=== PATIENT | female | born 1935 | race Caucasian/White ===

== ENCOUNTER → 2017-02-07 09:23 | Outpatient (CLI) | payer MEDICARE, BC ==
[2016-03-12 12:39] VITALS: BMI 32.1
[~2017-02-07 09:23] MED LIST: BAYER CHEWABLE81 MG PO; CALCIUM 500 +1 EAC3 PO; COREG 3.1253.125 MG PO; EVISTA60 MG PO; LEVOTHYROXINE125 MCG PO; PRAVACHOL40 MG PO; PROTONIX40 MG PO
== END | disposition home or self-care (01) ==
LOC: D.RT 09:23
DX: R05 Cough (principal)

== ENCOUNTER → 2017-06-06 09:39 | Outpatient (CLI) | payer MEDICARE, BC ==
[2016-03-12 12:39] VITALS: BMI 32.1
== END | disposition home or self-care (01) ==
LOC: D.ECHO 09:39 → D.RT 11:00
DX: J45.991 Cough variant asthma (principal)

== ENCOUNTER → 2017-11-20 15:51 | Outpatient (CLI) | payer MEDICARE, BC ==
[2016-03-12 12:39] VITALS: BMI 32.1
[2017-11-20 16:11] LABS: ANION GAP 15.1 mmol/L (8-16); CALCIUM 8.8 mg/dL (8.5-10.1); CARBON DIOXIDE 23.4 mmol/L (21.0-32.0); CREATININE - SERUM 1.2 mg/dL (0.6-1.3); MAGNESIUM - SERUM 1.7 mg/dL (1.8-2.4); PHOSPHOROUS 4.5 mg/dL (2.5-4.9); POTASSIUM - SERUM 4.5 mmol/L (3.5-5.1); PRE-ALBUMIN 23.5 mg/dL (18.0-35.7)
== END | disposition home or self-care (01) ==
LOC: D.LABREF 15:51
PROVIDERS: Nurse Practitioner
DX: I10 Essential (primary) hypertension (principal)

== ENCOUNTER → 2018-06-24 14:22 | Outpatient (CLI) | payer MEDICARE, BC ==
[2016-03-12 12:39] VITALS: BMI 32.1
[2018-06-24 17:06] LABS: IRON 52 ug/dl (35-150); UNSAT IRON BIND CAPACITY 356 ug/dl (150-375)
[2018-06-24 17:07] LABS: % SATURATION 12 % (15-55); TOTAL IRON BIND CAPACITY 408 ug/dl (260-445)
[2018-06-26 10:24] LABS: FOLATE (FOLIC ACID) - SERUM >20.0 ng/mL (>3.0)
== END | disposition home or self-care (01) ==
LOC: D.LABREF 14:22
PROVIDERS: Internal Medicine Gastroenterology
DX: K31.89 Other diseases of stomach and duodenum (principal); R10.13 Epigastric pain; R11.2 Nausea with vomiting, unspecified; D64.9 Anemia, unspecified; R63.4 Abnormal weight loss

== ENCOUNTER → 2018-07-16 10:40 | Outpatient (CLI) | payer MEDICARE, BC ==
[2016-03-12 12:39] VITALS: BMI 32.1
== END | disposition home or self-care (01) ==
LOC: D.CT 10:40
DX: R42 Dizziness and giddiness (principal); R55 Syncope and collapse

== ENCOUNTER 2018-08-20 14:32 | Inpatient (IN) | payer MEDICARE, BC ==
[~2018-08-20] VITALS: Ht 157.5 cm; Wt 67.7 kg
--- NOTE | ~2018-08-20 | CN ---
PATIENT NAME:BRYSON NUÑEZ MEDICAL RECORD: [id number] : 37 LOCATION:D. D.2123 ADMIT DATE: 08/21/18 ACCOUNT: [id number] CONSULTING PHYSICIAN: DALLIN KAMARA MD REFERRING PHYSICIAN: TERENCE CAMPO MD DATE OF CONSULTATION: 08/21/2018 CONSULT REQUESTING PHYSICIAN: Terence Campo MD REASON FOR CONSULTATION: Syncopal episode, chronic cough. HISTORY OF PRESENT ILLNESS: Ms. Nuñez is an 82-year-old female who is losing weight for the last 6 months, almost 25 pounds. She was seeing the tone cabinet assembler. When she was coming home, she nearly passed out and hit her head against the wall. She is also coughing and the cough is sometimes spasmodic in nature. She does have posterior nasal drip, but denies any gastroesophageal reflux symptoms. The cough is not productive of any significant sputum. She also hear herself wheezing. REVIEW OF SYSTEMS: As in history of present illness. PAST MEDICAL HISTORY: 1. Cough variant asthma. 2. Arthritis. 3. Hysterectomy. 4. Weight loss. PAST SURGICAL HISTORY: Hysterectomy in 1980. ALLERGIES: SHE IS ALLERGIC TO LISINOPRIL AND SHELLFISH. MEDICATIONS: On ThinkSmart is reviewed. PERSONAL AND SOCIAL HISTORY: The patient is a nonsmoker, nondrinker. FAMILY HISTORY: Noncontributory. PHYSICAL EXAMINATION: GENERAL: Now, the patient is lying comfortably, but she is not in acute distress. VITAL SIGNS: The blood pressure is 104/68, pulse is 82, respiration is 18, temperature 98.6, and SPO2 is 98% on room air. HEENT: Conjunctivae are pink. Sclerae are not icteric. NECK: Supple, no JVD. CHEST: There is prolonged expiration with wheezing. HEART: Rhythm regular, normal sound, no murmur. ABDOMEN: Soft, bowel sounds present. No hepatosplenomegaly. RECTAL: Deferred. EXTREMITIES: No cyanosis, no clubbing, no pedal edema. CENTRAL NERVOUS SYSTEM: The patient is awake and alert. There are no obvious cranial nerve abnormality. The gait was not tested. CARDIOVASCULAR: Cardiac echo, the right ventricular systolic pressure is 31. OTHER LABORATORY DATA: CBC: WBC 8, hemoglobin 12.4, hematocrit is 36.2, the platelet count is 252. Chemistry: Sodium is 136, potassium 4.2, BUN is 30, CONSULT REPORT [id number] BRYSON NUÑEZ creatinine 1.2. IMPRESSION: 1. Syncopal episode. The differential included but not limited to chronic cough, possible secondary pulmonary hypertension, rule out cardiac arrhythmia. 2. Cough-variant asthma. 3. Mild pulmonary hypertension. 4. Allergic rhinitis. 5. Unexplained weight loss. RECOMMENDATION: 1. Brovana/budesonide nebulizer b.i.d. 2. Methylprednisolone IV. 3. Singulair 10 mg a day. 4. Tussin cough syrup 5 cc b.i.d. 5. Zithromax 500 mg daily for 3 days. 6. Fluticasone nasal spray 2 squirts to each nostril daily. 7. GERD precaution given. Dr. Campo, thank you for involving me in the care of Ms. Nuñez. TRANSINT:[id number] Voice Confirmation ID: [id number] DOCUMENT ID: [id number] DALLIN KAMARA MD at 1711 CC: [id number] DICTATION DATE: 08/21/18 1556 CONSULTING SALES MANAGER: 08/21/181958 DIS IN 08/23/18 [place] [address] [place] [address]
--- NOTE | ~2018-08-20 | EC ---
PATIENT:BRYSON NUÑEZ DATE OF SERVICE: 08/20/18 SEX: F MEDICAL RECORD: [id number] DATE OF : 37 LOCATION:D.M2 D.212 AGE OF PATIENT: 82 ADMISSION DATE: 08/21/18 REFERRING PHYSICIAN: INTERPRETING PHYSICIAN: SUSHIL MARTE MD ECHOCARDIOGRAM REPORT ECHO CHARGES 4 ECHO COMPLETE Date: 08/21/18 CLINICAL DIAGNOSIS: SYNCOPE ECHOCARDIOGRAPHIC MEASUREMENTS (adult normal given) AC root (d.<3.7cm) 3.3 cm LV Septum d (<1.2 cm> 1.3 cm Valve Excursion 1.7 cm LV Septum (systole) 1.5 cm Left Atria (s.<4.0cm> 3.5 cm LVPW d(<1.2cm) 1.4 cm RV (d.<2.3cm) 3.5 cm LVPW (sytole) 1.7 cm LV diastole(<5.6CM) 4.3 cm MV E-F(>70mm/sec) cm LV systole 3.1 cm LVOT Diameter 1.7 cm MV exc.(>10mm) 1.0 cm Est.ejection fraction (50-75%) % DOPPLER: LVIT cm/sec A 88.0 cm/sec E 62.0 cm/sec LA cm/sec RVSP 31 mmHg LVOT 100 cm/sec AOP1/2T m/s Asc. Ao 135 cm/sec RVOT 90 cm/sec RA cm/sec PA 97 cm/sec AV Gradient Peak 7.32 mmHg AV Mean 3.75 mmHg AV Area 1.7 cm MV Gradient Peak 1.91 mmHg MV Mean 0.93 mmHg MV Area cm COMMENTS: Vacuum Conditioner Operator: 2 CAROLYN COREY Med Peds: 3 Dr. Urbina TAPE# PACS Pericardial Effusion N DATE OF SERVICE: Adequate 2-D echo, color flow imaging, spectral Doppler, and M-Mode. No LVH. LV internal dimension is normal. Wall motion is normal. EF is greater than or equal to 55%. Aortic valve is sclerotic. There is no evidence of stenosis on Doppler interrogation. Left atrium is normal. Mitral valve shows no prolapse. Trace MR. Right-sided chambers are grossly normal. Trace TR. TRANSINT:[id number] Voice Confirmation ID: [id number] DOCUMENT ID: [id number] ECHOCARDIOGRAM REPORT [id number] BRYSON NUÑEZ,SUSHIL Melgar MD at 1407 CC: [id number] DICTATION DATE: 08/21/18 1323 FIELD OBSERVER: 08/21/18 1530 DIS IN 08/23/18 [place] [id number] [place] [id number]
--- NOTE | ~2018-08-20 | MORECARE ---
CASE MANAGEMENT DISCHARGE SUMMARY PATIENT: BRYSON NUÑEZ UNIT: [id number] ADM DATE: 08/21/18 AGE: 82 : 36 SEX: F ROOM/BED: D.2123 AUTHOR: NY KELLY PHYSICIAN: REFERRING PHYSICIAN: TERENCE CAMPO MD DATE OF SERVICE: 08/25/18 Discharge Plan Patient Name: BRYSON NUÑEZ Facility: [facility] : 1935 Planned Disposition: Home Anticipated Discharge Date: 08/23/18 Discharge Date: 08/23/2018 Expected LOS: 2 Initial Reviewer: [email or web address] Initial Review Date: 08/25/2018 Generated: 08/25/18 9:56 am Patient Name: BRYSON NUÑEZ Page [id number] at 0857 All edits/amendments must be made on the electronic document DICTATION DATE: 08/25/18855 COMMAND AND CONTROL SPECIALIST: LISANDRO 08/25/18855 RPT#: [id number] DC DATE:08/23/18 STATUS: DIS IN [facility] [address] [place] [address] END OF REPORT
[2018-08-20 15:05] LABS: BASOPHILS 0.3 % (0-2); EOSINOPHILS 0.2 % (0-7); HEMATOCRIT 37.7 % (36.0-48.0); IMMATURE GRANULOCYTES 0.3 % (0-5); LYMPHOCYTES 29.6 % (15-50); MCH 32.7 pg (26.0-34.0); MCHC 34.5 g/dL (31.0-37.0); MCV 94.7 fL (80.0-100.0); MONOCYTES 6.9 % (2-11); NEUTROPHILS 62.7 % (40-80); RBC 3.98 10x6/uL (4.00-5.40); RDW 12.6 % (11.5-14.5); WBC 10.4 10x3/uL (4.8-10.8)
[2018-08-20 15:16] LABS: PLATELET COUNT 282 10x3/uL (130-400)
[2018-08-20 15:26] LABS: ALBUMIN 3.1 g/dL (3.4-5.0); BILIRUBIN - TOTAL 0.39 mg/dL (0.2-1.3); CALCIUM 8.9 mg/dL (8.5-10.1); CREATININE - SERUM 1.3 mg/dL (0.6-1.3)
[2018-08-20 15:47] LABS: CREATINE KINASE 341 UL (21-215); MAGNESIUM - SERUM 1.4 mg/dL (1.8-2.4)
[2018-08-20 15:51] LABS: CKMB 9.5 U/L (0.0-3.6); TROPONIN-I < 0.017 ng/mL (0.000-0.060)
[2018-08-20 19:10] VITALS: BP 127/047
[2018-08-21 04:00] VITALS: BP 104/68
[2018-08-21 05:58] LABS: BASOPHILS 0.4 % (0-2); EOSINOPHILS 1.1 % (0-7); HEMATOCRIT 36.2 % (36.0-48.0); HEMOGLOBIN 12.4 g/dL (12-16); IMMATURE GRANULOCYTES 0.4 % (0-5); LYMPHOCYTES 38.6 % (15-50); MCH 32.5 pg (26.0-34.0); MCHC 34.3 g/dL (31.0-37.0); MCV 94.8 fL (80.0-100.0); MEAN PLATELET VOLUME 10.1 fL (7.4-10.4); MONOCYTES 12.1 % (2-11); NEUTROPHILS 47.4 % (40-80); PLATELET COUNT 252 10x3/uL (130-400); RBC 3.82 10x6/uL (4.00-5.40); RDW 12.8 % (11.5-14.5)
[2018-08-21 06:30] LABS: ANION GAP 13.2 mmol/L (8-16); CALCIUM 8.6 mg/dL (8.5-10.1); CREATININE - SERUM 1.2 mg/dL (0.6-1.3); POTASSIUM - SERUM 4.2 mmol/L (3.5-5.1); T4 THYROXIN - FREE 1.65 ng/dL (0.76-1.46); THYROID STIMULATING HORMONE 0.49 uIU/mL (0.36-3.74)
[2018-08-21 08:22] VITALS: BP 106/54
[2018-08-21 12:50] VITALS: Ht 157.5 cm; Wt 67.7 kg
[2018-08-21 13:18] VITALS: BP 118/55
[2018-08-21 17:13] VITALS: BP 102/71
[2018-08-21 20:00] VITALS: BP 133/85
[2018-08-22 04:00] VITALS: BP 112/62
[2018-08-22 05:16] LABS: BASOPHILS 0 % (0-2); EOSINOPHILS 0 % (0-7); HEMATOCRIT 36.1 % (36.0-48.0); HEMOGLOBIN 12.4 g/dL (12-16); IMMATURE GRANULOCYTES 0.3 % (0-5); LYMPHOCYTES 20.6 % (15-50); MCH 32.5 pg (26.0-34.0); MCHC 34.3 g/dL (31.0-37.0); MCV 94.8 fL (80.0-100.0); MEAN PLATELET VOLUME 10.3 fL (7.4-10.4); MONOCYTES 1.7 % (2-11); NEUTROPHILS 77.4 % (40-80); PLATELET COUNT 289 10x3/uL (130-400); RBC 3.81 10x6/uL (4.00-5.40); RDW 12.8 % (11.5-14.5)
[2018-08-22 05:41] LABS: ALBUMIN 2.7 g/dL (3.4-5.0); ANION GAP 16.7 mmol/L (8-16); BILIRUBIN - TOTAL 0.25 mg/dL (0.2-1.3); CALCIUM 8.9 mg/dL (8.5-10.1); CREATININE - SERUM 0.9 mg/dL (0.6-1.3); PHOSPHOROUS 4.8 mg/dL (2.5-4.9); POTASSIUM - SERUM 4.7 mmol/L (3.5-5.1); PROTEIN - SERUM 6.5 g/dL (6.4-8.2)
[2018-08-22 09:39] VITALS: BP 112/59
[2018-08-22 11:34] VITALS: BP 115/55
[2018-08-22 14:54] VITALS: BP 113/71
[2018-08-22 21:42] VITALS: BP 124/63
[2018-08-23 00:57] VITALS: BP 108/53
[2018-08-23 05:24] LABS: BASOPHILS 0.2 % (0-2); EOSINOPHILS 0.1 % (0-7); HEMATOCRIT 34.4 % (36.0-48.0); HEMOGLOBIN 11.5 g/dL (12-16); IMMATURE GRANULOCYTES 0.5 % (0-5); LYMPHOCYTES 26.8 % (15-50); MCH 32.5 pg (26.0-34.0); MCHC 33.4 g/dL (31.0-37.0); MEAN PLATELET VOLUME 10.3 fL (7.4-10.4); MONOCYTES 10.6 % (2-11); NEUTROPHILS 61.8 % (40-80); PLATELET COUNT 295 10x3/uL (130-400); RBC 3.54 10x6/uL (4.00-5.40); RDW 13.1 % (11.5-14.5)
[2018-08-23 05:37] LABS: MCV 97.2 fL (80.0-100.0); WBC 12.1 10x3/uL (4.8-10.8)
[2018-08-23 05:39] VITALS: BP 124/85
[2018-08-23 06:00] LABS: ANION GAP 10.9 mmol/L (8-16); CALCIUM 8.7 mg/dL (8.5-10.1); POTASSIUM - SERUM 4.5 mmol/L (3.5-5.1)
[2018-08-23 06:01] LABS: CARBON DIOXIDE 27.6 mmol/L (21.0-32.0)
[2018-08-23 08:34] VITALS: BP 130/65
[2018-08-23] MEDS ORDERED: ZITHROMAX250 MG PO (09:08)
[2018-08-23] MEDS ORDERED: MEDROL DOSE PACK4 MG PO (09:10)
[2018-08-23] MEDS ORDERED: COREG 3.1253.125 MG PO (09:12)
[2018-08-23 12:05] VITALS: BP 133/67
== END 2018-08-23 13:58 | disposition home or self-care (01) | DRG 312 ==
LOC: D.ER 14:32 → D.EDHOLD 17:48 → D.M2 17:48 → D.EDHOLD 17:48 → OBSVTIME 17:49 → D.M2 19:37
PROVIDERS: Emergency Medicine; Family Medicine
DX: R55 Syncope and collapse (principal); E03.9 Hypothyroidism, unspecified; R63.4 Abnormal weight loss; S09.90XA Unspecified injury of head, initial encounter; W19.XXXA Unspecified fall, initial encounter; R62.7 Adult failure to thrive; R07.9 Chest pain, unspecified; I49.3 Ventricular premature depolarization; J30.9 Allergic rhinitis, unspecified; I27.20 Pulmonary hypertension, unspecified; K11.8 Other diseases of salivary glands

== ENCOUNTER 2018-11-10 06:15 | Day surgery (SDC) | payer MEDICARE, BC ==
[~2018-11-10] VITALS: Ht 157.5 cm; Wt 63.6 kg
[~2018-11-10 06:15] MED LIST changes: +BREO ELLIPTA 11 EACH INH; +MEDROL DOSE PACK4 MG PO; +PROPRANOLOL HCL20 MG PO; +PROVENTIL/2.5 MG/3 M INH; +ZITHROMAX250 MG PO
[2018-11-10 06:55] LABS: BASOPHILS 1.6 % (0-2); EOSINOPHILS 2.5 % (0-7); HEMATOCRIT 35.4 % (36.0-48.0); HEMOGLOBIN 12.1 g/dL (12-16); LYMPHOCYTES 36.8 % (15-50); MCH 33.2 pg (26.0-34.0); MCHC 34.2 g/dL (31.0-37.0); MEAN PLATELET VOLUME 10.1 fL (7.4-10.4); NEUTROPHILS 49.1 % (40-80); PLATELET COUNT 261 10x3/uL (130-400); RBC 3.65 10x6/uL (4.00-5.40); RDW 13.4 % (11.5-14.5); WBC 4.9 10x3/uL (4.8-10.8)
[2018-11-10 07:05] LABS: ANION GAP 16.3 mmol/L (8-16); CALCIUM 9.1 mg/dL (8.5-10.1); CARBON DIOXIDE 22.2 mmol/L (21.0-32.0); CREATININE - SERUM 1.2 mg/dL (0.6-1.3); POTASSIUM - SERUM 4.5 mmol/L (3.5-5.1)
[2018-11-10 08:23] VITALS: BP 140/65; BMI 31.7
--- NOTE | 2018-11-10 09:35 | HP ---
PATIENT: BRYSON NUÑEZ MEDICAL RECORD: [id number] ACCOUNT: [id number] LOCATION:[place] : 37 ADMISSION DATE: 11/10/18 PCP: TERENCE CAMPO MD HISTORY AND PHYSICAL EXAMINATION HISTORY OF PRESENT ILLNESS: Bryson is 82 years old. 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 She has decided to have this removed. She is being admitted for left superficial parotidectomy. PAST MEDICAL HISTORY: Includes reactive airway disease, hypothyroidism. PAST SURGICAL HISTORY: Includes hysterectomy. CURRENT MEDICATIONS: Synthroid, Evista. ALLERGIES: No known drug allergies. PHYSICAL EXAMINATION: GENERAL: She is healthy-appearing, developmentally normal. FACE: Normal and symmetric. EYES: Sclerae and conjunctivae are normal. EARS: Canals and TMs are normal. NOSE: No masses, polyps or drainage. ORAL CAVITY AND OROPHARYNX: Tongue protrudes in the midline. NECK: She has a left tail of the parotid mass about 3 cm in size, slightly mobile, rubbery consistency. CHEST: Clear. CARDIOVASCULAR: Regular rate and rhythm, no murmur. EXTREMITIES: Normal. IMPRESSION: Left parotid mass. PLAN: Left superficial parotidectomy. TRANSINT:[id number] Voice Confirmation ID: [id number] DOCUMENT ID: [id number] ANEESH WEBER MD at 0935 CC: [id number] DICTATION DATE: 11/07/18 1022 EXCEPTIONAL NEEDS TEACHER: 11/07/18 1047 REG [facility] [address] [place] [address]
[2018-11-10 13:20] VITALS: BP 121/50
[2018-11-10 13:24] VITALS: BP 121/50; Ht 157.5 cm; Wt 63.6 kg
[2018-11-10 14:15] VITALS: BP 117/73
[2018-11-10 16:00] VITALS: BP 101/57
--- NOTE | 2018-11-10 17:09 | OP ---
PATIENT NAME: BRYSON NUÑEZ MEDICAL RECORD: [id number] :37 LOCATION:D.MS Wallace.2214 ADMISSION DATE: SURGEON: ROMARIO WEBER MD DATE OF OPERATION: 11/10/2018 PREOPERATIVE DIAGNOSIS: Left parotid mass. POSTOPERATIVE DIAGNOSIS: Left parotid mass. PROCEDURE: Left parotidectomy. SURGEON: Romario Weber MD ANESTHESIA: General orotracheal. BLOOD LOSS: Less than 5 cc. SPECIMENS: Left parotid mass. DRAINS: A LUZ MARIA through a separate stab incision inferior to the wound. COMPLICATIONS: None. DISPOSITION: Recovery stable. 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 Mrs. Nuñez is an 83-year-old female with a history of parotid mass. She initially declined surgery. She later changed her mind and wanted surgery, but was extremely adamant. She wanted initially no scar, I told her that was impossible; she wanted little scar possible and just the mass removed, nothing more. She was very adamant about cosmetics preoperatively. DESCRIPTION OF PROCEDURE: She was brought to operating room and placed in supine position, sedated and intubated by anesthesia. Head was turned to the right. The area for the incision was cleaned with alcohol and injected with 1% lidocaine with 1:100,000 epinephrine about 1 cc, this was using her previous facelift scar. She was prepped and draped in the usual sterile fashion and then incision was made with a 15 blade. This was taken down through the skin, typical scarring from a previous facelift incision, flap was elevated anteriorly. A retraction suture with 2-0 silk was placed in the earlobe. Dissection was made down on to the sternocleidomastoid inferiorly and the tragal cartilage superiorly. Parotid gland was grasped with Allis clamp and retracted anteriorly, mass was identified. Dissection with a tonsil clamp, divided the fascia and some small vessels which were cauterized with bipolar cautery. Facial nerve was identified, it was splayed and above the tumor mass. The marginal branch inferiorly was followed down and dissected off the gland and underneath the gland inferiorly. Superior branches extended right along the center portion of the mass. These were also dissected off and gently rotated superiorly while the mass was dissected out. Some normal parotid tissue was divided, but the mass was not incised or disrupted. 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 The wound was copiously irrigated and inspected. A nerve stimulator was used on low setting to confirm that all branches of the facial nerve were intact and functional. Wound was inspected OPERATIVE REPORT [id number] BRYSON NUÑEZ for any adenopathy or any evidence of residual tumor, there was none, but because of her very strong wishes at the end of the dissection, no further dissection was performed as far as the neck dissection. A drain was placed through a separate stab incision inferior to the wound. The subcutaneous tissue was closed with interrupted 4-0 Vicryl. Skin was closed with 5-0 and 6-0 Prolene. Mupirocin ointment was applied. Drain was connected. She was awakened, extubated, and transported to recovery in good condition. No complications. Facial function and nerve function was normal in the recovery room. TRANSINT:[id number] Voice Confirmation ID: [id number] DOCUMENT ID: [id number] ROMARIO WEBER MD at 1709 CC: [id number] DICTATION DATE: 11/10/18 1402 PALLET RECTIFIER: 11/10/18 1515 REG [facility] [address] [place] [id number]
--- NOTE | 2018-11-10 20:00 | NUR ---
SUPINE IN BED, A&O X 4. INCISION TO LEFT SIDE OF FACE BY THE EAR IS CLEAN, DRY, AND INTACT. LUZ MARIA DRAIN IS COMPRESSED. PT DENIES PAIN/NEEDS AT THIS TIME. WILL CONTINUE TO MONITOR.
[2018-11-10 21:10] VITALS: BP 104/48
[2018-11-11 00:01] VITALS: BP 118/63
--- NOTE | 2018-11-11 02:49 | NUR ---
EYES CLOSED RESPIRATIONS WITH EASE AND UNLABORED. SR UP X2 CALL LIGHT WITHIN REACH.
[2018-11-11 04:56] VITALS: BP 110/65
[2018-11-11 08:00] VITALS: BP 111/48
[2018-11-11] MEDS ORDERED: HYDROCODON-ACE1 EAC7 PO (09:50)
[2018-11-11] MEDS ORDERED: KEFLEX250 MG PO (09:51)
--- NOTE | 2018-11-11 10:27 | NUR ---
IV DC AT THIS TIME WITH CATH INTACT, DC INSTRUCTIONS GIVEN TO PT FAMILY AT BEDSIDE, PRESCPITONS GIVEN TO PT, NO QUESTIONS/CONCERNS EXPRESSED, PT VERABLIZES UNDERSTANDING, LEFT VIA WHEELCAHIR, VIA HOSPITAL STAFF, VIA PRIVATE VECHILE IN STABLE CONDITON
== END 2018-11-11 10:07 | disposition home or self-care (01) ==
LOC: D.OPS 06:15 → D.PAN 08:30 → D.OPS 08:30 → D.PAN 08:45 → D.OPS 08:45 → D.MS 13:06 → D.OPS 11-11 10:07
PROVIDERS: Anesthesiology
DX: D11.0 Benign neoplasm of parotid gland (principal); E03.9 Hypothyroidism, unspecified

== ENCOUNTER → 2021-02-15 11:40 | Outpatient (CLI) | payer MEDICARE, BC ==
[2018-11-10 13:24] VITALS: BMI 25.6
[~2021-02-15 11:40] MED LIST changes: +HYDROCODON-ACE1 EAC7 PO; +KEFLEX250 MG PO
== END | disposition home or self-care (01) ==
LOC: D.HCCECHO 11:30
PROVIDERS: ATTEND Internal Medicine Cardiovascular Disease
DX: I34.0 Nonrheumatic mitral (valve) insufficiency (principal)

== ENCOUNTER 2021-03-26 23:39 | Inpatient (IN) | payer MEDICARE, BC ==
[~2021-03-26] VITALS: Ht 157.5 cm; Wt 71.7 kg
--- NOTE | ~2021-03-26 | OP ---
PATIENT NAME: BRYSON NUÑEZ MEDICAL RECORD: [id number] :37 LOCATION:D.MS Rodriguez2236 ADMISSION DATE:03/27/21 SURGEON: LEIA GARRETT MD DATE OF OPERATION: 03/27/2021 PREOPERATIVE DIAGNOSIS: Right humerus fracture. POSTOPERATIVE DIAGNOSIS: Right humerus fracture. PROCEDURE PERFORMED: ORIF right humerus. INDICATIONS: The patient is an 85-year-old left-hand dominant female who presented to [place] with right arm pain and deformity, status post fall. She tripped over a rug at home when she fell and injured her arm. X-ray showed a fracture of the midshaft humerus. She was admitted and arrangements made for her to come to the operating room for operative repair. Risks, benefits and alternatives of surgery were discussed with the patient and consent was obtained. DESCRIPTION OF PROCEDURE: The patient was met in the holding area where her identity and confirmation of procedure was performed. The right upper extremity was marked. She was taken to the operating room where she was placed supine on the operating table, and anesthesia was administered. The right upper extremity was prepped and draped in a sterile fashion. The patient received preoperative antibiotics and timeout was performed prior to initiating the case. On initiation of the case an anterior approach to the humerus was utilized for exposure. We incised the skin and subcutaneous tissues of the anterior upper arm just at the lateral edge of the biceps. I dissected down to the interval between biceps and brachialis and elevated the biceps medially to expose the fracture beneath the brachialis. The brachialis was split along its midline longitudinally and the fracture was exposed. Fracture was transverse and the ends of the fracture were debrided for the hematoma and periosteum. The fracture was then reduced. We attempted to place K-wires, but were unsuccessful. A 7-hole Biomet large frag plate was positioned over the fracture. We were able to hold the fracture reduced and then temporarily fixed the plate with K wires. We then placed a screw proximal and distal to the fracture. As we were assessing our stability, the screw proximal to the fracture broke the piece of the anterior cortex near the fracture line. The plate was therefore removed and we elected to go with an 8-hole Biomet large frag plate. Again with some manipulation, we were able to achieve our reduction and then carefully held this in place. We again attempted to place the plate and as we held the fracture in place, but we were unsuccessful. We therefore placed a 3.5 lag screw distal to proximal across the fracture along the lateral cortex. We were able to provide some temporary stability as we were then able to place the plate. The plate was positioned and held in position with K-wires. The screw was then placed proximal and a second screw was placed at the distal edge of the plate. We confirmed the fracture alignment and plate position under fluoroscopy. Two more screws were placed, 1 proximal and 1 distal to the fracture. We attempted to compress with the more distal screw. We were able to get some good compression at the fracture site. A third screw was placed at the proximal end of the plate and the locking screw was placed just distal to the fracture. We obtained 6 cortices of compression above and below the fracture. The final images were obtained that showed good alignment and fixation of the fracture. The wound was irrigated thoroughly with saline. The brachialis was then repaired with 0 Vicryl suture. The fascia over the biceps was repaired OPERATIVE REPORT [id number] BRYSON NUÑEZ with 0 Vicryl suture as well. Subcutaneous tissues were again irrigated thoroughly with saline. Subcutaneous tissue was closed with 2-0 Vicryl and the skin was closed with kapil. Sterile dressing was placed. The patient was placed into a sling turned back over to anesthesia where she was awakened and taken to the recovery room in stable condition. POSTOPERATIVE PLAN: The patient is going to be admitted for routine postoperative care. She will receive 24 hours postoperative antibiotics and be started on deep vein thrombosis prophylaxis tomorrow. Physical therapy will be consulted to assist with mobilization nonweightbearing right upper extremity. She is to remain in the sling at all times with instructions for no shoulder or elbow range of motion for the next couple of weeks. She will likely return home with family and follow up in clinic in 2 weeks. COMPLICATIONS: None. ESTIMATED BLOOD LOSS: 150 mL. ANESTHESIA: General with peripheral nerve block. TRANSINT:[id number] Voice Confirmation ID: [id number] DOCUMENT ID: [id number] LEIA GARRETT MD CC: [id number] DICTATION DATE: 03/27/212128 ROLL FORMING MACHINE SET UP MECHANIC: 03/28/21223 ADM IN [facility] [address] [place] [address]
[2021-03-26] MEDS ORDERED: MULTI-DAY VITAM1 TAB PO (23:47)
[2021-03-26] MEDS ORDERED: FLORINEF 0.1 M0.1 MG PO (23:49)
[2021-03-26] MEDS ORDERED: CORTEF10 MG PO (23:49)
--- NOTE | 2021-03-27 00:50 | NUR ---
DENNISE SHIRLEY - DOMESTIC PARTNER - [phone].
[2021-03-27 01:03] LABS: BASOPHILS 0.5 % (0-2); EOSINOPHILS 1.7 % (0-7); HEMATOCRIT 32.6 % (36.0-48.0); HEMOGLOBIN 11.1 g/dL (12-16); LYMPHOCYTES 15.8 % (15-50); MCH 35.6 pg (26.0-34.0); MCHC 34.1 g/dL (31.0-37.0); MCV 104.5 fL (80.0-100.0); MEAN PLATELET VOLUME 8.2 fL (7.4-10.4); MONOCYTES 5.1 % (2-11); NEUTROPHILS 76.9 % (40-80); PLATELET COUNT 212 10x3/uL (130-400); RBC 3.12 10x6/uL (4.00-5.40); RDW 13.3 % (11.5-14.5); WBC 7.5 10x3/uL (4.8-10.8)
[2021-03-27 01:12] LABS: ANION GAP 13.8 mmol/L (8-16); CALCIUM 8.5 mg/dL (8.5-10.1); CARBON DIOXIDE 23.2 mmol/L (21.0-32.0); CREATININE - SERUM 1.2 mg/dL (0.6-1.3)
[2021-03-27 01:14] LABS: INR 1.25 (0.85-1.17); PROTIME 14.5 SECONDS (11.6-15.0)
[2021-03-27 01:21] LABS: ALBUMIN 3.4 g/dL (3.4-5.0); BILIRUBIN - TOTAL 0.23 mg/dL (0.2-1.3); PROTEIN - SERUM 6.6 g/dL (6.4-8.2)
--- NOTE | 2021-03-27 02:40 | NUR ---
PER DR. VASQUEZ, PT'S RIGHT ARM IS TO BE PLACED IN SLING AND HOB ELEVATED SO ARM REST W/GRAVITY. PT WAS GIVEN MORPHINE ORDERED FOR PAIN AND ARM PLACED INTO POSITION AND HELD WHILE ANOTHER NURSE APPLED SLING. DISTAL PULSES AND SENSATION INTACT PRE AND POST SLING APPLICATION. 2 RINGS WERE REMOVED FROM PT'S FINGERS AT THAT TIME ALSO. RINGS WERE INVENTORIED AND PLACED IN SAFE BY IRRIGATION PUMP INSTALLER AND RN. PT STATES ARM FEELS MUCH BETTER AFTER POSITIONED IN SLING.
[2021-03-27 04:44] LABS: BASOPHILS 0.8 % (0-2); EOSINOPHILS 2.3 % (0-7); HEMATOCRIT 31.3 % (36.0-48.0); HEMOGLOBIN 10.6 g/dL (12-16); MCH 35.5 pg (26.0-34.0); MCHC 33.8 g/dL (31.0-37.0); MCV 105.1 fL (80.0-100.0); MEAN PLATELET VOLUME 8.3 fL (7.4-10.4); MONOCYTES 8.3 % (2-11); NEUTROPHILS 66.6 % (40-80); PLATELET COUNT 219 10x3/uL (130-400); RBC 2.98 10x6/uL (4.00-5.40); RDW 13.3 % (11.5-14.5); WBC 8.7 10x3/uL (4.8-10.8)
[2021-03-27 04:57] LABS: ALBUMIN 3.3 g/dL (3.4-5.0); ANION GAP 15.6 mmol/L (8-16); BILIRUBIN - TOTAL 0.27 mg/dL (0.2-1.3); CALCIUM 8.1 mg/dL (8.5-10.1); CARBON DIOXIDE 22.3 mmol/L (21.0-32.0); CREATININE - SERUM 1.2 mg/dL (0.6-1.3); POTASSIUM - SERUM 3.9 mmol/L (3.5-5.1); PROTEIN - SERUM 6.4 g/dL (6.4-8.2)
[2021-03-27 06:21] VITALS: BP 118/67
--- NOTE | 2021-03-27 06:35 | NUR ---
PT'S EMERGENCY CONTACT: DENNISE SHIRLEY (DOMESTIC PARTNER.) [phone].
[2021-03-27 11:31] VITALS: BP 107/58
--- NOTE | 2021-03-27 16:08 | NUR ---
D5 1/2NS STOPPED IN ER AT 1620 AND CONT'D IN HOSPITAL.
[2021-03-27 17:00] VITALS: BP 102/63; BMI 28.9
[2021-03-28] VITALS (7 sets, daily range): BP systolic 100–138; BP diastolic 43–73; BMI 28.9
--- NOTE | 2021-03-28 07:48 | NUR ---
ALERT AND ORIENTED. ASSESSMENT COMPLETE. DENIES NEEDS. BED LOW. CALL MEDINA AND PERSONAL ITEMS IN REACH. WILL CONTINUE TO MONITOR.
--- NOTE | 2021-03-28 14:27 | MORECARE ---
CASE MANAGEMENT DISCHARGE SUMMARY PATIENT: BRYSON NUÑEZ UNIT: [id number] ADM DATE: 03/27/21 AGE: 85 : 36 SEX: F ROOM/BED: [facility] AUTHOR: ROBINDOC PHYSICIAN: REFERRING PHYSICIAN: LEIA GARRETT MD DATE OF SERVICE: 03/28/21 Case Management Discharge Planning Summary DCP REVIEW SUMMARY ANTICIPATED D/C DATE: EXPECTED LOS : CASE STATUS: DCP Initiated INITIAL REVIEW: 03/27/2021 INITIAL REVIEWER: Taran Dorantes FINAL DISCHARGE DISPOSITION: : FINAL REVIEWER: FINAL REVIEW DATE: DCP Focus Questions & Answers QUESTION: ANSWER : PATIENT: BRYSON NUÑEZ ENCOUNTER: [id number] MEDICAL RECORD#: [id number] ADMISSION DATE: 03/27/2021 DISCHARGE DATE: ATTENDING MD: : AGE: 85 MARITAL STATUS: M DC PLAN ID: [id number] FACILITY: [facility] PRINTED ON: 03/28/21 14:27 CT All edits/amendments must be made on the electronic document DICTATION DATE: 03/28/211426 SAMPLER RADIOACTIVE WASTE: LISANDRO 03/28/21 142 RPT#: [id number] DC DATE: STATUS: ADM IN [facility] [address] [place] [address] END OF REPORT
--- NOTE | 2021-03-28 14:42 | MORECARE ---
CASE MANAGEMENT DISCHARGE SUMMARY PATIENT: BRYSON NUÑEZ UNIT: [id number] ADM DATE: 03/27/21 AGE: 85 : 36 SEX: F ROOM/BED: D.2236 AUTHOR: NY KELLY PHYSICIAN: REFERRING PHYSICIAN: LEIA GARRETT MD DATE OF SERVICE: 03/28/21 Case Management Discharge Planning Summary COMMENTS ENTERED DATE: 03/28/21 14:28 CT COMMENT TYPE: Discharge Planning REVIEWER: Taran Dorantes CM met with patient to complete DC plan and to evaluate needs. Patient lives independently with her spouse, Vincent Greer, . Patient stated that her home is safe and has electricity and running water. Patient stated that she has a cane and walker at home and she can manage moving about her home without difficulty. Patient stated that she has no problems paying for medications and she fills her medications at [facility] at the [facility]. Patient stated that her primary care physician is Dr. Ch. At discharge, the patient plans to return Home and feels this is a safe discharge. CM discussed availability of home health, rehab services, and medical equipment. Patient declined SNF, IPR, and DME but would like Home Health through [facility]. Patient would like [facility] services, with [employer]. MEDHAT signed and placed in chart. Spoke with Nellie at [facility]. Nellie stated she will look at the referral contact CM team with [facility]. Patient voiced no other needs at this time and is satisfied with DC plan. CM will continue to follow and will assist as needed with dc plans/needs. DCP REVIEW SUMMARY ANTICIPATED D/C DATE: EXPECTED LOS : CASE STATUS: DCP Initiated INITIAL REVIEW: 03/27/2021 INITIAL REVIEWER: Taran Dorantes FINAL DISCHARGE DISPOSITION: : FINAL REVIEWER: FINAL REVIEW DATE: DCP Focus Questions & Answers DCP Evaluation QUESTION: ANSWER Patient and/or caregiver agree upon recommended discharge plan? : Yes Family / Caregiver's ability to cope with chronic illness: : a. Adequate (ability to meet patient's medical needs, ensures patient attends medical appts.) Patient's current cognitive status: : *Oriented to person, place, situation, time and present Patient's ability to cope with chronic illness : d. No chronic illness Patient gives permission to discuss discharge plans with: (name, relationship and number) : spouse, Vincent Greer, Does the patient have the ability to pay for or attain post discharge needs / services? : Yes Functional screen assessment: : Basic needs can adequately be met by self Family / Caregiver's ability to cope with chronic illness: : a. Adequate (ability to meet patient's medical needs, ensures patient attends medical appts.) Physical Status: : Independent with ADL's Equipment needed for post hospitalization: : None Is there a likelihood that the patient will require additional services to return to the preadmission environment? : Yes Living Arrangements: : Home with Spouse/Significant Other Patient with capacity for self-care or can be cared for in same environment as prior to hospitalization? : Yes Baseline cognitive status: : *Oriented to person, place, situation, time and present Physical environment modification needed / anticipated for discharge: : No Medication Management: : Patient states can read and understand medication labels Medication Management: : Patient states can afford medications Pharmacy name(s): : [facility] at the [facility] Does Patient have transportation to get home and to follow-up medical appointments when discharged from the hospital? : Yes Would patient like to participate in any Care Coordination programs (if applicable): : Not applicable Does the patient have electricity at home? : Yes Does the patient have running water in their house? : Yes Equipment in use: : Walker - Rolling Equipment in use: : Cane - Single Leg Mental health screen: : No mental health history DCP Re-evaluation QUESTION: ANSWER Would patient like to participate in any Care Coordination programs (if applicable): : Not applicable PATIENT: BRYSON NUÑEZ ENCOUNTER: [id number] MEDICAL RECORD#: [id number] ADMISSION DATE: 03/27/2021 DISCHARGE DATE: ATTENDING MD: SARAHY: AGE: 85 MARITAL STATUS: M DC PLAN ID: [id number] FACILITY: [facility] PRINTED ON: 03/28/21 14:41 CT All edits/amendments must be made on the electronic document DICTATION DATE: 03/28/211440 BOOK COVERER: LISANDRO 03/28/211440 RPT#: [id number] DC DATE: STATUS: ADM IN [facility] [address] [place] [address] END OF REPORT
--- NOTE | 2021-03-28 18:38 | NUR ---
PATIENT TEMP IS 100.4 TEMPORAL, PATIENT JUST ADMINISTERED HYDROCODONE, APPLIED ICE PACK TO RT SHOULDER WELL MOIRA WASH RAG. CONTINUE WITH PLAN OF CARE
[2021-03-29] VITALS: BP 128/54
--- NOTE | 2021-03-29 01:02 | NUR ---
I have reviewed this patient and I concur with the Shift Assessment completed by the Licensed Practical Nurse today this shift.
[2021-03-29 04:00] VITALS: BP 115/56
[2021-03-29 06:22] LABS: HEMATOCRIT 25.8 % (36.0-48.0); HEMOGLOBIN 8.8 g/dL (12-16); MCH 35.4 pg (26.0-34.0); MCHC 33.9 g/dL (31.0-37.0); MCV 104.3 fL (80.0-100.0); MEAN PLATELET VOLUME 8.3 fL (7.4-10.4); RBC 2.47 10x6/uL (4.00-5.40); RDW 13.2 % (11.5-14.5); WBC 7.9 10x3/uL (4.8-10.8)
[2021-03-29 07:57] VITALS: BP 126/70
--- NOTE | 2021-03-29 10:06 | NUR ---
PATIENT SITTING UP IN BED WITH IV INTACT. SALINE LOCKED, K+ 4.9. PATIENT RECIEVED MEDS AND PAIN MEDS. DRESSING INTACT. SCDS OFF FOR NOW. WANTS TO TAKE A BREAK FROM THEM. CALL LIGHT WITHIN REACH.
[2021-03-29 12:06] VITALS: BP 142/63
--- NOTE | 2021-03-29 12:29 | MORECARE ---
CASE MANAGEMENT DISCHARGE SUMMARY PATIENT: BRYSON NUÑEZ UNIT: [id number] ADM DATE: 03/27/21 AGE: 85 : 36 SEX: F ROOM/BED: D.2236 AUTHOR: [place] KELLY PHYSICIAN: REFERRING PHYSICIAN: LEIA GARRETT MD DATE OF SERVICE: 03/29/21 Case Management Discharge Planning Summary COMMENTS ENTERED DATE: 03/28/21 14:28 CT COMMENT TYPE: Discharge Planning REVIEWER: Taran Dorantes CM met with patient to complete DC plan and to evaluate needs. Patient lives independently with her spouse, Vincent Greer, . Patient stated that her home is safe and has electricity and running water. Patient stated that she has a cane and walker at home and she can manage moving about her home without difficulty. Patient stated that she has no problems paying for medications and she fills her medications at [facility] at the [facility]. Patient stated that her primary care physician is Dr. Ch. At discharge, the patient plans to return Home and feels this is a safe discharge. CM discussed availability of home health, rehab services, and medical equipment. Patient declined SNF, IPR, and DME but would like Home Health through [facility]. Patient would like [facility] services, with [employer]. MEDHAT signed and placed in chart. Spoke with Nellie at [facility]. Nellie stated she will look at the referral contact CM team with SOC. Patient voiced no other needs at this time and is satisfied with DC plan. CM will continue to follow and will assist as needed with dc plans/needs. DCP REVIEW SUMMARY ANTICIPATED D/C DATE: EXPECTED LOS : CASE STATUS: DCP Initiated INITIAL REVIEW: 03/27/2021 INITIAL REVIEWER: Taran Dorantes FINAL DISCHARGE DISPOSITION: : FINAL REVIEWER: FINAL REVIEW DATE: DCP Focus Questions & Answers DCP Evaluation QUESTION: ANSWER Patient and/or caregiver agree upon recommended discharge plan? : Yes Family / Caregiver's ability to cope with chronic illness: : a. Adequate (ability to meet patient's medical needs, ensures patient attends medical appts.) Patient's current cognitive status: : *Oriented to person, place, situation, time and present Patient's ability to cope with chronic illness : d. No chronic illness Patient gives permission to discuss discharge plans with: (name, relationship and number) : spouse, Vincent Greer, Does the patient have the ability to pay for or attain post discharge needs / services? : Yes Functional screen assessment: : Basic needs can adequately be met by self Family / Caregiver's ability to cope with chronic illness: : a. Adequate (ability to meet patient's medical needs, ensures patient attends medical appts.) Physical Status: : Independent with ADL's Equipment needed for post hospitalization: : None Is there a likelihood that the patient will require additional services to return to the preadmission environment? : Yes Living Arrangements: : Home with Spouse/Significant Other Patient with capacity for self-care or can be cared for in same environment as prior to hospitalization? : Yes Baseline cognitive status: : *Oriented to person, place, situation, time and present Physical environment modification needed / anticipated for discharge: : No Medication Management: : Patient states can read and understand medication labels Medication Management: : Patient states can afford medications Pharmacy name(s): : [facility] at the [facility] Does Patient have transportation to get home and to follow-up medical appointments when discharged from the hospital? : Yes Would patient like to participate in any Care Coordination programs (if applicable): : Not applicable Does the patient have electricity at home? : Yes Does the patient have running water in their house? : Yes Equipment in use: : Walker - Rolling Equipment in use: : Cane - Single Leg Mental health screen: : No mental health history DCP Re-evaluation QUESTION: ANSWER Would patient like to participate in any Care Coordination programs (if applicable): : Not applicable PATIENT: BRYSON NUÑEZ ENCOUNTER: [id number] MEDICAL RECORD#: [id number] ADMISSION DATE: 03/27/2021 DISCHARGE DATE: ATTENDING MD: SARAHY: AGE: 85 MARITAL STATUS: M DC PLAN ID: [id number] FACILITY: [facility] PRINTED ON: 03/29/21 12:29 CT All edits/amendments must be made on the electronic document DICTATION DATE: 03/29/211228 CHUTE BOSS: LISANDRO 03/29/211228 RPT#: [id number] DC DATE: STATUS: ADM IN [facility] [address] [place] [address] END OF REPORT
[2021-03-29] MEDS ORDERED: HYDROCODON-ACE1 EAC7 PO (14:11)
--- NOTE | 2021-03-29 16:06 | MORECARE ---
CASE MANAGEMENT DISCHARGE SUMMARY PATIENT: BRYSON NUÑEZ UNIT: [id number] ADM DATE: 03/27/21 AGE: 85 : 36 SEX: F ROOM/BED: D.2236 AUTHOR: ROBIN,DOC PHYSICIAN: REFERRING PHYSICIAN: LEIA GARRETT MD DATE OF SERVICE: 03/29/21 Case Management Discharge Planning Summary COMMENTS ENTERED DATE: 03/29/21 15:53 CT COMMENT TYPE: Discharge Planning REVIEWER: Janet Andrew CM SPOKE WITH PATIENT AND HER TODAY. HE SAYS IT TOOK TWO PEOPLE WITH THERAPY TO GET HER UP AND HE IS NOT ABLE TO DO THAT AT HOME, THEY ARE ELDERLY. PATIENT AND AGREED TO INPATIENT REHAB AT [facility]. I HAVE FAXED REFERRAL, WAITING CALL BACK. PATIENT IS STABLE TO DC SOON REHAB ACCEPTS HER. CM TO FOLLOW AND ASSIST NEEDED. ENTERED DATE: 03/28/21 14:28 CT COMMENT TYPE: Discharge Planning REVIEWER: Taran Dorantes CM met with patient to complete DC plan and to evaluate needs. Patient lives independently with her spouse, Vincent Greer, . Patient stated that her home is safe and has electricity and running water. Patient stated that she has a cane and walker at home and she can manage moving about her home without difficulty. Patient stated that she has no problems paying for medications and she fills her medications at [facility] at the [facility]. Patient stated that her primary care physician is Dr. Ch. At discharge, the patient plans to return Home and feels this is a safe discharge. CM discussed availability of home health, rehab services, and medical equipment. Patient declined SNF, IPR, and DME but would like Home Health through [facility]. Patient would like [facility] services, with [email or web address]. MEDHAT signed and placed in chart. Spoke with Nellie at [facility]. Nellie stated she will look at the referral contact CM team with SOC. Patient voiced no other needs at this time and is satisfied with DC plan. CM will continue to follow and will assist as needed with dc plans/needs. DCP REVIEW SUMMARY ANTICIPATED D/C DATE: EXPECTED LOS : CASE STATUS: DCP Initiated INITIAL REVIEW: 03/27/2021 INITIAL REVIEWER: Taran Dorantes FINAL DISCHARGE DISPOSITION: : FINAL REVIEWER: FINAL REVIEW DATE: DCP Focus Questions & Answers DCP Evaluation QUESTION: ANSWER Patient and/or caregiver agree upon recommended discharge plan? : Yes Family / Caregiver's ability to cope with chronic illness: : a. Adequate (ability to meet patient's medical needs, ensures patient attends medical appts.) Patient's current cognitive status: : *Oriented to person, place, situation, time and present Patient's ability to cope with chronic illness : d. No chronic illness Patient gives permission to discuss discharge plans with: (name, relationship and number) : spouse, Vincent Greer, Does the patient have the ability to pay for or attain post discharge needs / services? : Yes Functional screen assessment: : Basic needs can adequately be met by self Family / Caregiver's ability to cope with chronic illness: : a. Adequate (ability to meet patient's medical needs, ensures patient attends medical appts.) Physical Status: : Independent with ADL's Equipment needed for post hospitalization: : None Is there a likelihood that the patient will require additional services to return to the preadmission environment? : Yes Living Arrangements: : Home with Spouse/Significant Other Patient with capacity for self-care or can be cared for in same environment as prior to hospitalization? : Yes Baseline cognitive status: : *Oriented to person, place, situation, time and present Physical environment modification needed / anticipated for discharge: : No Medication Management: : Patient states can read and understand medication labels Medication Management: : Patient states can afford medications Pharmacy name(s): : [facility] at the [facility] Does Patient have transportation to get home and to follow-up medical appointments when discharged from the hospital? : Yes Would patient like to participate in any Care Coordination programs (if applicable): : Not applicable Does the patient have electricity at home? : Yes Does the patient have running water in their house? : Yes Equipment in use: : Walker - Rolling Equipment in use: : Cane - Single Leg Mental health screen: : No mental health history DCP Re-evaluation QUESTION: ANSWER Would patient like to participate in any Care Coordination programs (if applicable): : Not applicable PATIENT: BRYSON NUÑEZ Rajendra ENCOUNTER: [id number] MEDICAL RECORD#: [id number] ADMISSION DATE: 03/27/2021 DISCHARGE DATE: ATTENDING MD: SARAHY: AGE: 85 MARITAL STATUS: M DC PLAN ID: [id number] FACILITY: [facility] PRINTED ON: 03/29/21 16:06 CT All edits/amendments must be made on the electronic document DICTATION DATE: 03/29/211604 SERVICER TRAVEL TRAILERS: LISANDRO 03/29/211604 RPT#: [id number] DC DATE: STATUS: ADM IN [facility] [address] [place] [address] END OF REPORT
[2021-03-29 17:49] VITALS: BP 197/81
[2021-03-29 20:00] VITALS: BP 113/52
[2021-03-30 04:00] VITALS: BP 144/64
[2021-03-30 05:26] LABS: HEMATOCRIT 26.6 % (36.0-48.0); HEMOGLOBIN 8.9 g/dL (12-16); MCH 35.6 pg (26.0-34.0); MCHC 33.5 g/dL (31.0-37.0); MEAN PLATELET VOLUME 7.9 fL (7.4-10.4); RBC 2.5 10x6/uL (4.00-5.40); RDW 13.1 % (11.5-14.5)
[2021-03-30 05:31] LABS: WBC 5.1 10x3/uL (4.8-10.8)
[2021-03-30 05:32] LABS: MCV 106.5 fL (80.0-100.0)
[2021-03-30 09:11] VITALS: BP 135/56
--- NOTE | 2021-03-30 10:01 | NUR ---
ASSESSMENT PER FLOW SHEET. PATIENT IS WITHOUT DISTRESS.FALL PREVENTION WITH BED ALARM. MONITOR FOR NEEDS.DOOR OPEN
[2021-03-30 11:32] VITALS: BP 117/54
--- NOTE | 2021-03-30 13:01 | NUR ---
OT NOTE: BED MOB WITH MOD ASSIST; AMB WTIH MANAGER IT TRAINING IN ROOM..VERY SHORT, CHOPPY STEPS..VERBAL CUES TO PREVENT PT FROM LEANING FORWARD DURING AMB. REQUIRES ASSIST WITH TOILET HYGIENE; ASSIST WITH LE DRESSING AND UE DRESSING. CONT TO RECOMMEND IP REHAB PT IS REQUIRING EXT ASSIST WITH MOST ADLS AND IS VERY UNSTEADY FOR AMB MERRY NAJERA, OTR/L
[2021-03-30 13:48] VITALS: Ht 157.5 cm; Wt 71.7 kg
[2021-03-30 17:39] VITALS: BP 136/74
[2021-03-30 20:00] VITALS: BP 154/61
[2021-03-31] VITALS: BP 142/65
[2021-03-31 04:00] VITALS: BP 137/56
[2021-03-31 08:17] VITALS: BP 135/98
--- NOTE | 2021-03-31 08:52 | NUR ---
ASSESSMENT PER FLOW SHEET. NPO FOR SURGERY TODAY.WANTS PAIN MED WHEN SHE CAN THEM.MONITOR. BED ALARM ON AND WORKING.CALL LIGHT IN REACH
[2021-03-31 12:19] VITALS: BP 132/85
--- NOTE | 2021-03-31 13:13 | NUR ---
OT NOTE: HOLD FOR SX
--- NOTE | 2021-03-31 14:28 | NUR ---
IV SITED TO LFA AFTER 2 ATTEMPTS WITH 20G. PREOP MEDS GIVEN PER ORDER.
--- NOTE | 2021-03-31 14:45 | NUR ---
CONSENT TO CHART ORDERED. PRE MEDS PER CAITLIN GUY RN
--- NOTE | 2021-03-31 20:52 | NUR ---
[id number] 4.5MM X 26MM BIOMET LOCKING SCREW IMPLANTED. NOTED,VALENTERN
[2021-04-01 00:31] VITALS: BP 121/54
[2021-04-01 04:29] VITALS: BP 130/63
--- NOTE | 2021-04-01 08:19 | OP ---
PATIENT NAME: BRYSON NUÑEZ MEDICAL RECORD: [id number] :37 LOCATION:D.MS [id number] ADMISSION DATE:03/27/21 SURGEON: APOLINAR MADDEN DO DATE OF OPERATION: 03/31/2021 PROCEDURE PERFORMED: Right humerus revision open reduction and internal fixation. PREOPERATIVE DIAGNOSIS: Failed open reduction and internal fixation of right humeral shaft fracture. POSTOPERATIVE DIAGNOSIS: Failed open reduction and internal fixation of right humeral shaft fracture. INDICATIONS: Ms. Nuñez is an 85-year-old female, who fell on the and fractured her humerus midshaft. She underwent open reduction and internal fixation and her bone did not hold the plate and screws and it cut out. It was seen on x-rays yesterday I believe and she was put on for Dr. Fernández and then he was on vacation, so I told him I could help him and get it done today and he was in agreeance with that. Plan for this is to retain the plate, put locking screws in proximally and put another plate on anteriorly to hold it and more locking screws. I have informed her of that and if that did not work, we would do a nail. She was aware of that and aware of the risks including infection, bleeding, damage to nerves or vessels in the area, continued pain, malunion, nonunion, need for further surgery, and even and she signed the consent. SURGEON: Apolinar Madden DO. DESCRIPTION OF PROCEDURE: The patient received a block by anesthesia in the preoperative area, taken to the operative suite, laid in supine position, given general anesthetic and LMA was placed. She was given 2 grams of Ancef preoperatively. The right upper extremity was then prepped and draped in sterile fashion. Timeout was performed. Everyone was in agreement with the correct side, site, patient and procedure. I then began by making an incision over the old wound, careful dissection down to the plate, removed the 3 proximal screws that had ripped out of the bone and reduced the fracture again maintaining the large frag plate and put 2 locking screws in proximally and 1 cortical screw through oblong hole. I then changed out the most distal screw with a locking screw and then changed the second from the end distal screw to another cortical screw re-angling the screw. I then put in 1 more cortical screw proximally angling it from medial to lateral and distal to proximal and got a good bite with the bone and then put DBX and there was a gap of approximately 7 mm in the central portion. The lateral cortex and the medial cortex and posterior cortex were all touching and reduced. However, there was on the anterior cortex a hole and I filled it with DBX bone putty, 2.5 mL of it. I then put in the anterior plate on, a 3.5 cortical 8-hole locking plate. I put 2 locking screws distally and a compression screw and then 2 locking screws proximally as the compression screw did not hold. Then, under x-ray, I changed out a few more screws due to the length and they locked well on the plate. I then ranged the arm in internal and external rotation, flexion and extension to ensure that the plates would hold and the fracture did not move and it did not. I then irrigated thoroughly. Once irrigating, I then put in Celso and Naga Hodges, certified medical coding specialist, and Otf Carr, certified medical coding specialist, closed the wound with 2-0 Vicryl in inverted interrupted fashion and placed Prineo glue on the skin. She was then dressed with Telfa and Tegaderm OPERATIVE REPORT [id number] BRYSON NUÑEZ and then wrapped with an Marquise wrap from the hand all the way up to the upper arm, put in a sling and taken to recovery in stable condition. BLOOD LOSS: Approximately 200 mL. COMPLICATIONS: None. TRANSINT:[id number] Voice Confirmation ID: [id number] DOCUMENT ID: [id number] APOLINAR MADDEN DO at 0819 CC: [id number] DICTATION DATE: 03/31/212033 HUMANITIES INSTRUCTOR: 04/01/21 0614 ADM IN [facility] [address] [place] [address]
[2021-04-01 09:08] VITALS: BP 124/52
[2021-04-01 09:19] LABS: HEMATOCRIT 29.5 % (36.0-48.0); HEMOGLOBIN 9.7 g/dL (12-16)
[2021-04-01 14:49] VITALS: BP 118/53
--- NOTE | 2021-04-01 15:55 | NUR ---
PT PAIN LEVEL A 7 OUT OF 10 ON THE PAIN SCALE. CL IN REACH. WILL TREAT PER EMAR.
[2021-04-01 18:29] VITALS: BP 121/54
--- NOTE | 2021-04-01 19:36 | NUR ---
PATIENT RESTING IN BED WITH NO S/S OF DISTRESS AND DENIES NEEDS AT THIS TIME. BED IN LOWEST POSITION AND CALL LIGHT IN REACH. ENCOURAGED PATIENT TO CALL WITH NEEDS.
[2021-04-01 20:00] VITALS: BP 123/59
--- NOTE | 2021-04-01 23:44 | NUR ---
ADMINISTERED MEDS PER ORDERS. PATIENT TESFAYE WELL. ENCOURAGED TO CALL WITH NEEDS.
[2021-04-02] VITALS (7 sets, daily range): BP systolic 27–154; BP diastolic 49–76
[2021-04-02 05:44] LABS: HEMOGLOBIN 7.9 g/dL (12-16)
[2021-04-02 05:46] LABS: HEMATOCRIT 23.3 % (36.0-48.0)
--- NOTE | 2021-04-02 21:10 | NUR ---
ADMINISTERED MEDS PER ORDERS. PATIENT TESFAYE WELL. ENCOURAGED TO CALL WITH NEEDS.
[2021-04-03] VITALS: BP 145/76
[2021-04-03 04:00] VITALS: BP 113/51
[2021-04-03 05:31] LABS: HEMATOCRIT 24.6 % (36.0-48.0); HEMOGLOBIN 8.3 g/dL (12-16)
[2021-04-03 08:43] VITALS: BP 140/53
--- NOTE | 2021-04-03 12:16 | MORECARE ---
CASE MANAGEMENT DISCHARGE SUMMARY PATIENT: BRYSON NUÑEZ UNIT: [id number] ADM DATE: 03/27/21 AGE: 85 : 36 SEX: F ROOM/BED: D.2236 AUTHOR: ROBIN,DOC PHYSICIAN: REFERRING PHYSICIAN: LEIA GARRETT MD DATE OF SERVICE: 04/03/21 Case Management Discharge Planning Summary COMMENTS ENTERED DATE: 04/03/21 12:14 CT COMMENT TYPE: Discharge Planning REVIEWER: Janet Andrew [facility] INPATIENT REHAB HAS DECLINED PATIENT. I HAVE FAXED REFERRAL TO [facility], WAITING CALL BACK . ENTERED DATE: 03/29/21 15:53 CT COMMENT TYPE: Discharge Planning REVIEWER: Janet Andrew CHARY SPOKE WITH PATIENT AND HER TODAY. HE SAYS IT TOOK TWO PEOPLE WITH THERAPY TO GET HER UP AND HE IS NOT ABLE TO DO THAT AT HOME, THEY ARE ELDERLY. PATIENT AND AGREED TO INPATIENT REHAB AT [facility]. I HAVE FAXED REFERRAL, WAITING CALL BACK. PATIENT IS STABLE TO DC SOON REHAB ACCEPTS HER. CM TO FOLLOW AND ASSIST NEEDED. ENTERED DATE: 03/28/21 14:28 CT COMMENT TYPE: Discharge Planning REVIEWER: Taran Dorantes CM met with patient to complete DC plan and to evaluate needs. Patient lives independently with her spouse, Vincent Greer, . Patient stated that her home is safe and has electricity and running water. Patient stated that she has a cane and walker at home and she can manage moving about her home without difficulty. Patient stated that she has no problems paying for medications and she fills her medications at [facility]. Patient stated that her primary care physician is Dr. Ch. At discharge, the patient plans to return Home and feels this is a safe discharge. CM discussed availability of home health, rehab services, and medical equipment. Patient declined SNF, IPR, and DME but would like Home Health through [facility]. Patient would like [facility] services, with company. MEDHAT signed and placed in chart. Spoke with Nellie at [facility]. Nellie stated she will look at the referral contact CM team with SOC. Patient voiced no other needs at this time and is satisfied with DC plan. CM will continue to follow and will assist as needed with dc plans/needs. DCP REVIEW SUMMARY ANTICIPATED D/C DATE: EXPECTED LOS : CASE STATUS: DCP Initiated INITIAL REVIEW: 03/27/2021 INITIAL REVIEWER: Taran Dorantes FINAL DISCHARGE DISPOSITION: : FINAL REVIEWER: FINAL REVIEW DATE: DCP Focus Questions & Answers DCP Evaluation QUESTION: ANSWER Patient and/or caregiver agree upon recommended discharge plan? : Yes Family / Caregiver's ability to cope with chronic illness: : a. Adequate (ability to meet patient's medical needs, ensures patient attends medical appts.) Patient's current cognitive status: : *Oriented to person, place, situation, time and present Patient's ability to cope with chronic illness : d. No chronic illness Patient gives permission to discuss discharge plans with: (name, relationship and number) : spouse, Vincent Greer, Does the patient have the ability to pay for or attain post discharge needs / services? : Yes Functional screen assessment: : Basic needs can adequately be met by self Family / Caregiver's ability to cope with chronic illness: : a. Adequate (ability to meet patient's medical needs, ensures patient attends medical appts.) Physical Status: : Independent with ADL's Equipment needed for post hospitalization: : None Is there a likelihood that the patient will require additional services to return to the preadmission environment? : Yes Living Arrangements: : Home with Spouse/Significant Other Patient with capacity for self-care or can be cared for in same environment as prior to hospitalization? : Yes Baseline cognitive status: : *Oriented to person, place, situation, time and present Physical environment modification needed / anticipated for discharge: : No Medication Management: : Patient states can read and understand medication labels Medication Management: : Patient states can afford medications Pharmacy name(s): : [facility] Does Patient have transportation to get home and to follow-up medical appointments when discharged from the hospital? : Yes Would patient like to participate in any Care Coordination programs (if applicable): : Not applicable Does the patient have electricity at home? : Yes Does the patient have running water in their house? : Yes Equipment in use: : Walker - Rolling Equipment in use: : Cane - Single Leg Mental health screen: : No mental health history DCP Re-evaluation QUESTION: ANSWER Would patient like to participate in any Care Coordination programs (if applicable): : Not applicable PROVIDER NETWORKING REVIEW DATE: 04/03/2021 SERVICE TYPE: [facility] REVIEWER: Janet Andrew PATIENT: BRYSON NUÑEZ ENCOUNTER: [id number] MEDICAL RECORD#: [id number] ADMISSION DATE: 03/27/2021 DISCHARGE DATE: ATTENDING MD: SARAHY: AGE: 85 MARITAL STATUS: M DC PLAN ID: [id number] FACILITY: [facility] PRINTED ON: 04/03/21 12:16 CT All edits/amendments must be made on the electronic document DICTATION DATE: 04/03/211215 BLENDING TANK TENDER HELPER: LISANDRO 04/03/21 1216 RPT#: [id number] DC DATE: STATUS: ADM IN [facility] [address] [place] [address] END OF REPORT
[2021-04-03 14:22] VITALS: BP 143/61
--- NOTE | 2021-04-03 16:00 | NUR ---
I have reviewed this patient and I concur with the Shift Assessment completed by the Licensed Practical Nurse today this shift.
--- NOTE | 2021-04-03 16:39 | NUR ---
OT NOTE: ATTEMPTED TMT IN AFTERNOON. PTS R HAND WAS EXTREMELEY EDEMATOUS.. NURSING REPORTED THAT IT WAS NOT THIS WAY PREVIOUSLY. PT REPORTS THAT IT STARTED AROUND NOON.. HAD PT PERFORM SOME ACTIVE WRIST AND FINGER FLEX/EXT EXS..ELEVATED ON PILLOW.. INSTRUCTED TO CONT FINGER FLEX/EXT TO ASSIST WITH EDEMA CONTROL. MERRY NAJERA, OTR/L [id number]
[2021-04-03 17:23] VITALS: BP 104/78
[2021-04-03 20:00] VITALS: BP 126/56
--- NOTE | 2021-04-03 20:25 | NUR ---
ADMINISTERED MEDS PER ORDERS. PATIENT TESFAYE WELL. ENCOURAGED PATIENT TO CALL WITH NEEDS.
[2021-04-04] VITALS: BP 134/65
--- NOTE | 2021-04-04 02:37 | NUR ---
ASSISTED PATIENT TO AND FROM RESTROOM. PATIENT DENIES OTHER NEEDS AT THIS TIME. BED IN LOWEST POSITION, CALL LIGHT IN REACH, AND BED ALARM ON. ENCOURAGED PATIENT TO CALL WITH NEEDS.
[2021-04-04 04:00] VITALS: BP 143/74
--- NOTE | 2021-04-04 08:30 | NUR ---
PATIENT UP TO CHAIR WITH ASSIST AT THIS TIME. CHAIR ALARM ON. SLING ON. DRESSING CDI. CALL LIGHT WITHIN REACH.
[2021-04-04 09:02] VITALS: BP 120/56
--- NOTE | 2021-04-04 10:31 | NUR ---
OT NOTE: PT DOING BETTER TODAY.. EDEMA IMPROVED GREATLY IN R HAND; PROVIDED PT WITH CANE, PT ABLE TO AMB IN ROOM WITH SBA; TOILET TRANSFERS WITH CGA; HYGIENE WITH SBA; MOD ASSIST TO LISY SOCKS; ABLE TO PERFORM SINK HYGIENE WHILE STANDING AT SINK WITH SBA; AMB INTO HALLWAY WITH CANE X 150 FT TO IMPROVE STRENGTH AND ENDURANCE..PT VERY FATIGUED WHEN RETURNED TO ROOM; ABLE TO PERFORM SIT TO SUPINE WITH SPV AND USE OF BED RAILS. MERRY NAJERA, OTR/L [phone]
--- NOTE | 2021-04-04 11:00 | NUR ---
PATIENT IN BED WITH IV INTACT. NO COMPLAINTS OR SIGNS OF DISTRESS. FAMILY AT BEDSIDE. CALL LIGHT WITHIN REACH.
[2021-04-04 13:22] VITALS: BP 135/78
--- NOTE | 2021-04-04 14:20 | NUR ---
PATIENT IN BED WITH EYES CLOSED RESTING QUIETLY. IV INTACT. CALL LIGHT WITHIN REACH.
--- NOTE | 2021-04-04 14:25 | NUR ---
Nutrition follow-up: Diet order: Regular PO intake 75-100% of last 9 meals Labs reviewed Wt: 158# + fluid balance most days Pt currently meeting nutritional goals. RDN will reassess pts progress in 3-6 days.
--- NOTE | 2021-04-04 16:57 | NUR ---
PATIENT ASSISTED TO BR AND BACK TO BED. NO COMPLAINTS OR SIGNS OF DISTRESS. ELEVATED ARM ON PILLOW WITH SLING ON. CALL LIGHT WITHIN REACH.
[2021-04-04 18:04] VITALS: BP 152/57
[2021-04-04 19:55] VITALS: BP 123/52
--- NOTE | 2021-04-04 20:00 | NUR ---
ALERT RESTING IN BED, DENIES PAIN OR NEEDS AT THIS TIME, SEE SHIFT ASSESSMENT, CALL LIGHT IN REACH
[2021-04-05 00:16] VITALS: BP 121/60
[2021-04-05 05:37] VITALS: BP 150/84
[2021-04-05 07:15] LABS: BASOPHILS 1.5 % (0-2); EOSINOPHILS 8.2 % (0-7); HEMATOCRIT 24.7 % (36.0-48.0); HEMOGLOBIN 8.2 g/dL (12-16); LYMPHOCYTES 23.9 % (15-50); MCH 34.6 pg (26.0-34.0); MCHC 33.2 g/dL (31.0-37.0); MEAN PLATELET VOLUME 7.5 fL (7.4-10.4); MONOCYTES 11.2 % (2-11); NEUTROPHILS 55.2 % (40-80); RBC 2.38 10x6/uL (4.00-5.40); RDW 13.1 % (11.5-14.5); WBC 5.1 10x3/uL (4.8-10.8)
[2021-04-05 07:33] LABS: ANION GAP 10.9 mmol/L (8-16); CALCIUM 7.9 mg/dL (8.5-10.1); POTASSIUM - SERUM 3.9 mmol/L (3.5-5.1)
[2021-04-05 07:35] LABS: PLATELET COUNT 326 10x3/uL (130-400)
[2021-04-05 09:38] VITALS: BP 118/73
--- NOTE | 2021-04-05 10:19 | MORECARE ---
CASE MANAGEMENT DISCHARGE SUMMARY PATIENT: BRYSON NUÑEZ UNIT: [id number] ADM DATE: 03/27/21 AGE: 85 : 36 SEX: F ROOM/BED: D.2236 AUTHOR: ROBIN,DOC PHYSICIAN: REFERRING PHYSICIAN: LEIA GARRETT MD DATE OF SERVICE: 04/05/21 Case Management Discharge Planning Summary COMMENTS ENTERED DATE: 04/03/21 12:14 CT COMMENT TYPE: Discharge Planning REVIEWER: Janet Andrew [facility]PATIENT [facility] HAS DECLINED PATIENT. I HAVE FAXED REFERRAL TO [facility], WAITING CALL BACK . ENTERED DATE: 03/29/21 15:53 CT COMMENT TYPE: Discharge Planning REVIEWER: Janet Andrew CHARY SPOKE WITH PATIENT AND HER TODAY. HE SAYS IT TOOK TWO PEOPLE WITH THERAPY TO GET HER UP AND HE IS NOT ABLE TO DO THAT AT HOME, THEY ARE ELDERLY. PATIENT AND AGREED TO INPATIENT REHAB AT [facility]. I HAVE FAXED REFERRAL, WAITING CALL BACK. PATIENT IS STABLE TO DC SOON REHAB ACCEPTS HER. CM TO FOLLOW AND ASSIST NEEDED. ENTERED DATE: 03/28/21 14:28 CT COMMENT TYPE: Discharge Planning REVIEWER: Taran Dorantes CM met with patient to complete DC plan and to evaluate needs. Patient lives independently with her spouse, Vincent Greer, . Patient stated that her home is safe and has electricity and running water. Patient stated that she has a cane and walker at home and she can manage moving about her home without difficulty. Patient stated that she has no problems paying for medications and she fills her medications at [facility] at the [facility]. Patient stated that her primary care physician is Dr. Ch. At discharge, the patient plans to return Home and feels this is a safe discharge. CM discussed availability of home health, rehab services, and medical equipment. Patient declined SNF, IPR, and DME but would like Home Health through [facility]. Patient would like [facility] services, with company. [employer]HAT signed and placed in chart. Spoke with Nellie at [facility]. Nellie stated she will look at the referral contact CM team with SOC. Patient voiced no other needs at this time and is satisfied with DC plan. CM will continue to follow and will assist as needed with dc plans/needs. DCP REVIEW SUMMARY ANTICIPATED D/C DATE: EXPECTED LOS : CASE STATUS: DCP Initiated INITIAL REVIEW: 03/27/2021 INITIAL REVIEWER: Taran Dorantes FINAL DISCHARGE DISPOSITION: : FINAL REVIEWER: FINAL REVIEW DATE: DCP Focus Questions & Answers DCP Evaluation QUESTION: ANSWER Patient and/or caregiver agree upon recommended discharge plan? : Yes Family / Caregiver's ability to cope with chronic illness: : a. Adequate (ability to meet patient's medical needs, ensures patient attends medical appts.) Patient's current cognitive status: : *Oriented to person, place, situation, time and present Patient's ability to cope with chronic illness : d. No chronic illness Patient gives permission to discuss discharge plans with: (name, relationship and number) : spouse, Vincent Greer, Does the patient have the ability to pay for or attain post discharge needs / services? : Yes Functional screen assessment: : Basic needs can adequately be met by self Family / Caregiver's ability to cope with chronic illness: : a. Adequate (ability to meet patient's medical needs, ensures patient attends medical appts.) Physical Status: : Independent with ADL's Equipment needed for post hospitalization: : None Is there a likelihood that the patient will require additional services to return to the preadmission environment? : Yes Living Arrangements: : Home with Spouse/Significant Other Patient with capacity for self-care or can be cared for in same environment as prior to hospitalization? : Yes Baseline cognitive status: : *Oriented to person, place, situation, time and present Physical environment modification needed / anticipated for discharge: : No Medication Management: : Patient states can read and understand medication labels Medication Management: : Patient states can afford medications Pharmacy name(s): : [facility] at the [facility] Does Patient have transportation to get home and to follow-up medical appointments when discharged from the hospital? : Yes Would patient like to participate in any Care Coordination programs (if applicable): : Not applicable Does the patient have electricity at home? : Yes Does the patient have running water in their house? : Yes Equipment in use: : Walker - Rolling Equipment in use: : Cane - Single Leg Mental health screen: : No mental health history DCP Re-evaluation QUESTION: ANSWER Would patient like to participate in any Care Coordination programs (if applicable): : Not applicable PROVIDER NETWORKING REVIEW DATE: 04/03/2021 SERVICE TYPE: [facility] REVIEWER: Janet Andrew PATIENT: BRYSON NUÑEZ ENCOUNTER: [id number] MEDICAL RECORD#: [id number] ADMISSION DATE: 03/27/2021 DISCHARGE DATE: 04/05/2021 ATTENDING MD: SARAHY: [id number] AGE: 85 MARITAL STATUS: M DC PLAN ID: [id number] FACILITY: [facility] PRINTED ON: 04/05/21 10:19 CT All edits/amendments must be made on the electronic document DICTATION DATE: 04/05/21 1019 TEACHER EDUCATION INSTRUCTOR: LISANDRO 04/05/21 1019 RPT#: [id number] DC DATE:04/05/21 STATUS: DIS IN [facility] [address] [place] [address] END OF REPORT
--- NOTE | 2021-04-06 13:54 | MORECARE ---
CASE MANAGEMENT DISCHARGE SUMMARY PATIENT: BRYSON NUÑEZ UNIT: [id number] ADM DATE: 03/27/21 AGE: 85 : 36 SEX: F ROOM/BED: D.2236 AUTHOR: ROBIN,DOC PHYSICIAN: REFERRING PHYSICIAN: LEIA GARRETT MD DATE OF SERVICE: 04/06/21 Case Management Discharge Planning Summary COMMENTS ENTERED DATE: 04/03/21 12:14 CT COMMENT TYPE: Discharge Planning REVIEWER: Janet Andrew [facility]PAT[facility] HAS DECLINED PATIENT. I HAVE FAXED REFERRAL TO [facility], WAITING CALL BACK . ENTERED DATE: 03/29/21 15:53 CT COMMENT TYPE: Discharge Planning REVIEWER: Janet Andrew CHARY SPOKE WITH PATIENT AND HER TODAY. HE SAYS IT TOOK TWO PEOPLE WITH THERAPY TO GET HER UP AND HE IS NOT ABLE TO DO THAT AT HOME, THEY ARE ELDERLY. PATIENT AND AGREED TO INPATIENT REHAB AT [facility]. I HAVE FAXED REFERRAL, WAITING CALL BACK. PATIENT IS STABLE TO DC SOON REHAB ACCEPTS HER. CM TO FOLLOW AND ASSIST NEEDED. ENTERED DATE: 03/28/21 14:28 CT COMMENT TYPE: Discharge Planning REVIEWER: Taran Dorantes CM met with patient to complete DC plan and to evaluate needs. Patient lives independently with her spouse, Vincent Greer, . Patient stated that her home is safe and has electricity and running water. Patient stated that she has a cane and walker at home and she can manage moving about her home without difficulty. Patient stated that she has no problems paying for medications and she fills her medications at [facility] at [facility]. Patient stated that her primary care physician is Dr. Ch. At discharge, the patient plans to return Home and feels this is a safe discharge. CM discussed availability of home health, rehab services, and medical equipment. Patient declined SNF, IPR, and DME but would like Home Health through [facility]. Patient would like [facility] services, with company. MEDHAT signed and placed in chart. Spoke with Nellie at [facility]. Nellie stated she will look at the referral contact CM team with SOC. Patient voiced no other needs at this time and is satisfied with DC plan. CM will continue to follow and will assist as needed with dc plans/needs. DCP REVIEW SUMMARY ANTICIPATED D/C DATE: EXPECTED LOS : CASE STATUS: DCP Initiated INITIAL REVIEW: 03/27/2021 INITIAL REVIEWER: Taran Dorantes FINAL DISCHARGE DISPOSITION: : FINAL REVIEWER: FINAL REVIEW DATE: DCP Focus Questions & Answers DCP Evaluation QUESTION: ANSWER Patient and/or caregiver agree upon recommended discharge plan? : Yes Family / Caregiver's ability to cope with chronic illness: : a. Adequate (ability to meet patient's medical needs, ensures patient attends medical appts.) Patient's current cognitive status: : *Oriented to person, place, situation, time and present Patient's ability to cope with chronic illness : d. No chronic illness Patient gives permission to discuss discharge plans with: (name, relationship and number) : spouse, Vincent Greer, Does the patient have the ability to pay for or attain post discharge needs / services? : Yes Functional screen assessment: : Basic needs can adequately be met by self Family / Caregiver's ability to cope with chronic illness: : a. Adequate (ability to meet patient's medical needs, ensures patient attends medical appts.) Physical Status: : Independent with ADL's Equipment needed for post hospitalization: : None Is there a likelihood that the patient will require additional services to return to the preadmission environment? : Yes Living Arrangements: : Home with Spouse/Significant Other Patient with capacity for self-care or can be cared for in same environment as prior to hospitalization? : Yes Baseline cognitive status: : *Oriented to person, place, situation, time and present Physical environment modification needed / anticipated for discharge: : No Medication Management: : Patient states can read and understand medication labels Medication Management: : Patient states can afford medications Pharmacy name(s): : [facility] at the [facility] Does Patient have transportation to get home and to follow-up medical appointments when discharged from the hospital? : Yes Would patient like to participate in any Care Coordination programs (if applicable): : Not applicable Does the patient have electricity at home? : Yes Does the patient have running water in their house? : Yes Equipment in use: : Walker - Rolling Equipment in use: : Cane - Single Leg Mental health screen: : No mental health history DCP Re-evaluation QUESTION: ANSWER Would patient like to participate in any Care Coordination programs (if applicable): : Not applicable PROVIDER NETWORKING REVIEW DATE: 04/03/2021 SERVICE TYPE: [facility] REVIEWER: Janet Andrew PATIENT: BRYSON NUÑEZ ENCOUNTER: [id number] MEDICAL RECORD#: [id number] ADMISSION DATE: 03/27/2021 DISCHARGE DATE: 04/05/2021 ATTENDING MD: SARAHY: 1936 AGE: 85 MARITAL STATUS: M DC PLAN ID: [id number] FACILITY: [facility] PRINTED ON: 04/06/21 13:54 CT All edits/amendments must be made on the electronic document DICTATION DATE: 04/06/21 1354 INSURANCE FOLLOW UP SPECIALIST: LISANDRO 04/06/21 1354 RPT#: [id number] DC DATE:04/05/21 STATUS: DIS IN [facility] [address] [place] [address] END OF REPORT
== END 2021-04-05 10:10 | DRG 493 ==
LOC: D.ER 23:39 → D.EDHOLD 03-27 02:45 → OBSVTIME 03-27 02:46 → D.MS 03-27 15:28 → D.EDHOLD 03-27 15:29 → D.MS 03-27 19:42
PROVIDERS: Emergency Medicine; Family Medicine; Orthopaedic Surgery; ADMIT Orthopaedic Surgery; ATTEND Orthopaedic Surgery
PROC: 0PSF04Z Reposition Right Humeral Shaft with Internal Fixation Device, Open Approach (ICD-10-PCS; principal; 2021-03-27 15:30)
DX: S42.301A Unspecified fracture of shaft of humerus, right arm, initial encounter for closed fracture (principal); E27.40 Unspecified adrenocortical insufficiency; W19.XXXA Unspecified fall, initial encounter; I10 Essential (primary) hypertension